=== PATIENT | female | born 1985 | race Caucasian/White ===

== ENCOUNTER 2021-11-18 08:24 | Outpatient (CLI) | payer OTHER | END 2021-11-18 08:25 | disposition home or self-care (01) | LOC: CSHLAB 08:24 | PROVIDERS: ATTEND Student in an Organized Health Care Education/Training Program | DX: Z01.812 Encounter for preprocedural laboratory examination (principal); Z20.822 Contact with and (suspected) exposure to COVID-19 | CPT/HCPCS: 85027; 86780; 86850; 86900; 86901; 87340; U0003; U0005 ==

== ENCOUNTER 2021-11-20 06:01 | Inpatient (IN) | payer OTHER ==
[2021-11-18 13:56] LABS: Hemoglobin 12.8 g/dL (12.0-15.5); Mean Corpuscular HGB CONC 34.4 g/dL (32.0-36.0); Mean Corpuscular Hemoglobin 30.9 pg (27.0-33.0); Mean Corpuscular Volume 89.9 fl (81.6-98.3); Mean Platelet Volume 10.4 fl (7.4-10.4); Platelet Count 238 10x3/uL (150-450); RBC Distribution Width 13.3 % (11.5-14.5); Red Blood Cell (RBC) Count 4.14 10x6/uL (3.90-5.03); White Blood Cell (WBC) Count 8.5 10x3/uL (3.5-10.5)
[2021-11-18 14:30] LABS: Hep B Surf Ag Non-Reactive S/CO (NonReactive); Syphilis Antibody Nonreactive (Nonreactive); Syphilis Antibody Index 0.04 S/CO (<1.00 Non-Reactive)
[2021-11-18 14:44] LABS: HBSAg Index 0.18 S/CO (0-0.99)
[2021-11-20] MEDS ORDERED: Famotidine/PF 20 mg/2ml Vial SLOW IVP PRN (10:35)
[2021-11-20] MEDS ORDERED: Promethazine HCl 25 MG/ML VIAL IM PRN ×2 (10:35→13:42)
[2021-11-20] MEDS ORDERED: Ondansetron PF 4 MG/2 ML Vial IVP PRN ×3 (10:35→16:18)
[2021-11-20] MEDS ORDERED: Bicitra 30 ML UDCUP PO PRN (10:35)
[2021-11-20] MEDS ORDERED: hydrALAZINE 20 MG/ML VIAL SLOW IVP PRN ×2 (10:35→16:18)
[2021-11-20] MEDS ORDERED: CEFAZOLIN 2 GM in Sodium Chloride 0.9% 100 ML IVPB SCH (10:45)
[2021-11-20] MEDS ORDERED: Lactated Ringer's 1,000 ML IV SCH (10:45)
[2021-11-20 11:28] VITALS: BMI 29.0
[2021-11-20] MEDS ORDERED: Morphine PF 10 MG/10 ML VIAL ONE (12:00)
[2021-11-20] MEDS ORDERED: Oxytocin 10 UNITS/ML VIAL ONE (12:00)
[2021-11-20] MEDS ORDERED: PHENYLEPHRINE-NS 100 MCG/ML 10 ML SYRINGE ONE (12:00)
[2021-11-20] MEDS ORDERED: Ondansetron PF 4 MG/2 ML Vial ONE (12:00)
[2021-11-20] MEDS ORDERED: Ketorolac Tromethamine 30 MG/ML VIAL ONE (12:00)
[2021-11-20] MEDS ORDERED: Naloxone HCl 0.4 mg/ml Vial IV PRN (13:42)
[2021-11-20] MEDS ORDERED: Promethazine HCl 25 MG SUPP PR PRN (13:42)
[2021-11-20] MEDS ORDERED: Ondansetron HCl/PF 4 MG/2 ML Vial IVP PRN (13:42)
[2021-11-20] MEDS ORDERED: Naloxone HCl 0.4 mg/ml Vial IVP PRN ×2 (13:42)
[2021-11-20] MEDS ORDERED: Fentanyl 100 MCG/2 ML VIAL SLOW IVP PRN (13:42)
[2021-11-20] MEDS ORDERED: Meperidine HCl/PF 25 MG/ML VIAL SLOW IVP PRN (13:42)
[2021-11-20] MEDS ORDERED: HYDROmorphone 2 MG/ML VIAL SLOW IVP PRN (13:42)
[2021-11-20] MEDS ORDERED: Moisturizing Cream (Eucerin) 113 GM JAR TOP PRN (13:42)
[2021-11-20] MEDS ORDERED: diphenhydrAMINE 50 MG/ML VIAL IVP PRN (13:42)
[2021-11-20] MEDS ORDERED: Ketorolac Tromethamine 30 MG/ML VIAL IVP PRN (13:42)
[2021-11-20] MEDS ORDERED: Ketorolac Tromethamine 30 MG/ML VIAL IVP SCH (13:45)
[2021-11-20] MEDS ORDERED: Communication Order-Pharmacy FS SCH (13:45)
[2021-11-20] MEDS ORDERED: Meperidine HCl/PF 25 MG/ML VIAL ONE (14:20)
[2021-11-20] MEDS ORDERED: NS w/ Oxytocin 30 units 500 ML ONE (14:26)
[2021-11-20] MEDS ORDERED: Lanolin Ointment 7 GM TUBE TOP PRN (16:18)
[2021-11-20] MEDS ORDERED: Acetaminophen 325 MG TAB PO PRN (16:18)
[2021-11-20] MEDS ORDERED: Boostrix 0.5 ML (Tdap) VIAL IM ONE (16:18)
[2021-11-20] MEDS ORDERED: diphenhydrAMINE 25 MG CAP PO PRN (16:18)
[2021-11-20] MEDS ORDERED: Bisacodyl 10 MG SUPP PR PRN (16:18)
[2021-11-20] MEDS: Ferrous Sulfate 325 MG TAB PO SCH (22:51)
[2021-11-21 04:06] LABS: Hemoglobin 10.8 g/dL (12.0-15.5); Mean Corpuscular HGB CONC 34.2 g/dL (32.0-36.0); Mean Corpuscular Hemoglobin 31.2 pg (27.0-33.0); Mean Corpuscular Volume 91.3 fl (81.6-98.3); Platelet Count 197 10x3/uL (150-450); RBC Distribution Width 13.6 % (11.5-14.5); Red Blood Cell (RBC) Count 3.46 10x6/uL (3.90-5.03); White Blood Cell (WBC) Count 10.3 10x3/uL (3.5-10.5)
[2021-11-21] MEDS: Docusate 100 MG CAP PO SCH ×3 (04:26→21:50)
[2021-11-21] MEDS: HYDROcodone/Acetaminophen 5/325 mg Tablet PO PRN ×3 (08:28→16:24)
[2021-11-21] MEDS: Ferrous Sulfate 325 MG TAB PO SCH ×2 (09:47→21:43)
[2021-11-21] MEDS: Ibuprofen 800 MG TAB PO SCH ×2 (13:42→21:50)
[2021-11-21] MEDS: Simethicone Chewable 80 MG TAB PO PRN (15:43)
[2021-11-22] MEDS: HYDROcodone/Acetaminophen 5/325 mg Tablet PO PRN ×2 (01:04→08:27)
[2021-11-22] MEDS: Ibuprofen 800 MG TAB PO SCH (06:21)
[2021-11-22 07:39] VITALS: TEMP 97.9
[2021-11-22] MEDS: Ferrous Sulfate 325 MG TAB PO SCH (08:07)
[2021-11-22] MEDS: Docusate 100 MG CAP PO SCH (08:22)
[2021-11-22] MEDS: Simethicone Chewable 80 MG TAB PO PRN (08:27)
[2021-11-22 11:45] VITALS: BP 115/70
== END 2021-11-22 13:00 | disposition home or self-care (01) | DRG 785 ==
LOC: CSHLD 10:09 → CSHPED 16:00
PROVIDERS: ADMIT Student in an Organized Health Care Education/Training Program; ATTEND Student in an Organized Health Care Education/Training Program
PROC: 10D00Z1 Extraction of Products of Conception, Low, Open Approach (ICD-10-PCS; principal; 2021-11-20)
PROC: 0UT70ZZ Resection of Bilateral Fallopian Tubes, Open Approach (ICD-10-PCS; 2021-11-20)
DX: O34.211 Maternal care for low transverse scar from previous cesarean delivery (principal); Z3A.39 39 weeks gestation of pregnancy; Z37.0 Single live birth; Z20.822 Contact with and (suspected) exposure to COVID-19; Q99.2 Fragile X chromosome; O99.892 Other specified diseases and conditions complicating childbirth; L40.9 Psoriasis, unspecified; J45.909 Unspecified asthma, uncomplicated; O99.52 Diseases of the respiratory system complicating childbirth; O99.72 Diseases of the skin and subcutaneous tissue complicating childbirth; Z91.041 Radiographic dye allergy status; O69.81X0 Labor and delivery complicated by cord around neck, without compression, not applicable or unspecified
CPT/HCPCS: 36415; 51702; 85027; 86780; 86850; 86900; 86901; 87340; 88302; J0690; J1200; J1885; J2175; J2274; J2405; J2590; J3490; J7120; S0028; U0003; U0005